=== PATIENT | male | born 1990 | race Caucasian/White ===

== ENCOUNTER 2016-11-27 21:27 | Emergency (ER) | payer OTHER ==
[2016-11-27 21:37] VITALS: BP 143/64
--- NOTE | 2016-11-27 21:43 | ER Document Report ---
ED Medical Screen (RME) - General Stated Complaint: RASH IN GROIN,URINARY SYMPTOMS Notes: 26 yo male c/o dysuria and penile rash x 1 week. pt reports had cold sore and performed oral sex. no significant PMHx Physical Exam - Vital signs Vitals: Temp Pulse Resp BP Pulse Ox 98.4 F 56 L 16 143/64 H 98 11/27/16 21:35 11/27/16 21:35 11/27/16 21:35 11/27/16 21:35 11/27/16 21:35 Course - Vital Signs Vital signs: Temp Pulse Resp BP Pulse Ox 98.4 F 56 L 16 143/64 H 98 11/27/16 21:35 11/27/16 21:35 11/27/16 21:35 11/27/16 21:35 11/27/16 21:35
== END 2016-11-28 00:02 | disposition left against medical advice (07) ==
LOC: ER 21:27
DX: R21 Rash and other nonspecific skin eruption (principal)
CPT/HCPCS: 99281